=== PATIENT | male | born 1990 | race Caucasian/White ===

== ENCOUNTER 2019-04-03 11:35 | Emergency (ER) | payer MEDICAID, OTHER ==
[~2019-04-03] VITALS: Ht 170.2 cm; Wt 86.4 kg
[~2019-04-03 11:35] MED LIST: MUPI22OI30 TOP
[2019-04-03] MEDS ORDERED: LIDOcaine 1% w/EPI 1:200,000 injection 10mL vial IM ONE (12:25)
[2019-04-03] MEDS ORDERED: TETanus/Pertussis (Acell)/Diphther VAC/PF (Tdap-Adult) 0.5ml syringe IM ONE (12:25)
[2019-04-03] MEDS ORDERED: LIDOcaine 1% W/epiNEPHrine 1:100,000 20ml vial IJ ONE (12:35)
[2019-04-03] MEDS ORDERED: AMOX-422 PO (13:17)
[2019-04-03 13:22] VITALS: BP 105/73
== END 2019-04-03 13:40 | disposition home or self-care (01) ==
LOC: ER 11:35
DX: S91.311A Laceration without foreign body, right foot, initial encounter (principal); Z79.2 Long term (current) use of antibiotics; W22.8XXA Striking against or struck by other objects, initial encounter; Y93.89 Activity, other specified; Y92.89 Other specified places as the place of occurrence of the external cause; Y99.8 Other external cause status
CPT/HCPCS: 12001; 73630; 90471; 99283